=== PATIENT | male | born 1960 | race Caucasian/White ===

== ENCOUNTER 2023-08-05 17:32 | Inpatient (IN) | payer MEDICARE ==
[2023-08-06] MEDS ORDERED: Zolpidem Tartrate 5 MG TAB PO PRN (11:38)
[2023-08-06] MEDS ORDERED: HumaLOG 300 UNITS/3 ML VIAL SC PRN (11:40)
[2023-08-06] MEDS ORDERED: Dextrose 50% Abboject 50 ML SYRINGE SLOW IVP PRN (11:40)
[2023-08-06] MEDS ORDERED: Glucagon 1 MG/ML KIT IM PRN (11:40)
[2023-08-06] MEDS ORDERED: Senokot S 8.6-50 MG TAB PO PRN (11:42)
[2023-08-06] MEDS ORDERED: Ondansetron ODT 4 MG TAB SL PRN (11:42)
[2023-08-06] MEDS ORDERED: Bisacodyl 5 MG TAB PO PRN (11:42)
[2023-08-06] MEDS ORDERED: Acetaminophen 325 MG TAB PO PRN (11:42)
[2023-08-06] MEDS: sulfaSALAzine 500 MG TAB PO SCH (21:14)
[2023-08-06] MEDS: Apixaban 5 MG TAB PO SCH (21:14)
[2023-08-06] MEDS: Atorvastatin Calcium 10 MG TAB PO SCH (21:14)
[2023-08-06] MEDS: Gabapentin 300 MG CAP PO SCH (21:15)
[2023-08-06] MEDS: Dexamethasone 1 MG TAB PO SCH (21:15)
[2023-08-07] MEDS: Dexamethasone 1 MG TAB PO SCH ×4 (02:55→20:56)
[2023-08-07] MEDS: Levothyroxine Sodium 125 MCG TAB PO SCH (05:28)
[2023-08-07] MEDS: HumaLOG 300 UNITS/3 ML VIAL SC PRN ×3 (05:37→17:29)
[2023-08-07 05:49] VITALS: BMI 52.6
[2023-08-07 05:53] LABS: #Basophils 0.1 thou/uL (0.0-0.2); #Lymphocytes 0.7 thou/uL (1.20-3.40); #Neutrophils 10.2 thou/uL (1.40-6.50); %Basophils 0.6 % (0.0-1.0); %Lymphocytes 5.7 % (21.0-51.0); %Monocytes 8.2 % (0.0-10.0); %Neutrophils 85.5 % (42.0-75.0); Hematocrit 46.1 % (42.0-52.0); Hemoglobin 15.6 g/dL (14.0-18.0); Mean Corpuscular HGB CONC 33.8 g/dL (32.0-36.0); Mean Corpuscular Hemoglobin 32.2 pg (27.0-31.0); Mean Corpuscular Volume 95.3 fl (78.0-98.0); Mean Platelet Volume 8.9 fL (7.4-10.4); Platelet Count 209 10x3/uL (130-400); RBC Distribution Width 13.4 % (11.5-14.5); Red Blood Cell (RBC) Count 4.84 mill/uL (4.70-6.10); White Blood Cell (WBC) Count 11.9 10x3/uL (4.8-10.8)
[2023-08-07 06:12] LABS: ALT (SGPT) 41 U/L (8-55); AST (SGOT) 18 U/L (5-34); Albumin 3.3 g/dL (3.4-4.8); Alkaline Phosphatase 43 U/L (40-110); Anion Gap 10 mmol/L (10-20); BUN (Urea Nitrogen) 15 mg/dL (8.4-25.7); Bilirubin, Total 0.6 mg/dL (0.2-1.2); Calc. Creatinine Clearance 248 mL/min (70-130); Calcium 8.5 mg/dL (7.8-10.44); Carbon Dioxide 26 mmol/L (23-31); Chloride 104 mmol/L (98-107); Estimated GFR 103; Globulin 2.8 g/dL (2.4-3.5); Glucose 154 mg/dL (80-115); Potassium 4.5 mmol/L (3.5-5.1); Protein, Total 6.1 g/dL (5.8-8.1); Sodium 135 mmol/L (136-145)
[2023-08-07] MEDS: Lisinopril 10 MG TAB PO SCH (09:11)
[2023-08-07] MEDS: Gabapentin 300 MG CAP PO SCH ×3 (09:11→20:56)
[2023-08-07] MEDS: Apixaban 5 MG TAB PO SCH ×2 (09:12→20:56)
[2023-08-07] MEDS: sulfaSALAzine 500 MG TAB PO SCH ×2 (09:13→20:55)
[2023-08-07] MEDS: Atorvastatin Calcium 10 MG TAB PO SCH (20:56)
[2023-08-08] MEDS: Dexamethasone 1 MG TAB PO SCH ×4 (02:27→20:31)
[2023-08-08] MEDS: Levothyroxine Sodium 125 MCG TAB PO SCH (05:25)
[2023-08-08] MEDS: Apixaban 5 MG TAB PO SCH ×2 (09:32→20:31)
[2023-08-08] MEDS: Gabapentin 300 MG CAP PO SCH ×3 (09:32→20:32)
[2023-08-08] MEDS: Lisinopril 10 MG TAB PO SCH (09:33)
[2023-08-08] MEDS: sulfaSALAzine 500 MG TAB PO SCH ×2 (09:34→20:31)
[2023-08-08] MEDS ORDERED: Loperamide HCl 2 MG CAP PO PRN (14:06)
[2023-08-08] MEDS: Atorvastatin Calcium 10 MG TAB PO SCH (20:32)
[2023-08-09] MEDS: Dexamethasone 1 MG TAB PO SCH ×4 (03:17→21:02)
[2023-08-09] MEDS: Levothyroxine Sodium 125 MCG TAB PO SCH (05:37)
[2023-08-09] MEDS: HumaLOG 300 UNITS/3 ML VIAL SC PRN (06:04)
[2023-08-09] MEDS: Lisinopril 10 MG TAB PO SCH (09:24)
[2023-08-09] MEDS: sulfaSALAzine 500 MG TAB PO SCH ×2 (09:24→21:02)
[2023-08-09] MEDS: Gabapentin 300 MG CAP PO SCH ×3 (09:25→21:03)
[2023-08-09] MEDS: Apixaban 5 MG TAB PO SCH ×2 (09:25→21:02)
[2023-08-09] MEDS: Atorvastatin Calcium 10 MG TAB PO SCH (21:03)
[2023-08-10] MEDS: Dexamethasone 1 MG TAB PO SCH ×3 (03:31→17:03)
[2023-08-10] MEDS: Levothyroxine Sodium 125 MCG TAB PO SCH (05:39)
[2023-08-10] MEDS: HumaLOG 300 UNITS/3 ML VIAL SC PRN (07:09)
[2023-08-10 07:35] VITALS: BP 120/60; TEMP 98.2
[2023-08-10] MEDS: Apixaban 5 MG TAB PO SCH (08:15)
[2023-08-10] MEDS: sulfaSALAzine 500 MG TAB PO SCH (08:15)
[2023-08-10] MEDS: Lisinopril 10 MG TAB PO SCH (08:16)
[2023-08-10] MEDS: Gabapentin 300 MG CAP PO SCH ×2 (08:16→17:03)
[2023-08-13] MEDS ORDERED: SEMAGLUTIDE 1 MG/0.75 ML SC SCH (09:00)
== END 2023-08-10 10:24 | disposition short-term general hospital (02) | DRG 947 ==
LOC: NAV ACUTE 08-06 15:06
PROVIDERS: ADMIT Family Medicine; ATTEND Family Medicine
PROC: 5A09357 Assistance with Respiratory Ventilation, Less than 24 Consecutive Hours, Continuous Positive Airway Pressure (ICD-10-PCS; principal; 2023-08-08)
DX: R53.81 Other malaise (principal); I26.92 Saddle embolus of pulmonary artery without acute cor pulmonale; J96.01 Acute respiratory failure with hypoxia; I82.432 Acute embolism and thrombosis of left popliteal vein; E11.9 Type 2 diabetes mellitus without complications; I10 Essential (primary) hypertension; M54.9 Dorsalgia, unspecified; G89.29 Other chronic pain; M48.07 Spinal stenosis, lumbosacral region; M54.17 Radiculopathy, lumbosacral region; R00.1 Bradycardia, unspecified; G47.33 Obstructive sleep apnea (adult) (pediatric); Z98.890 Other specified postprocedural states; Z90.89 Acquired absence of other organs
CPT/HCPCS: 36416; 80053; 85025; 36415-59; J1815; J8540